=== PATIENT | male | born 1950 | race Caucasian/White ===

== ENCOUNTER 2024-05-18 09:23 | Emergency (ER) | payer OTHER, SELFPAY ==
[2024-05-18] VITALS (13 sets, daily range): BP systolic 103–145; BP diastolic 57–81; PULSE 69–106; RESP 16–18; TEMP 36.7; O2SAT 96–100
--- NOTE | 2024-05-18 09:34 | ED_ITS ---
HPI - Abdominal Pain General Chief Complaint: Abdominal Pain Stated Complaint: Stomach pain Time Seen by Provider: 05/18/24 09:33 Source: patient Mode of arrival: Ambulatory Limitations: no limitations History of Present Illness HPI narrative: Patient is a 74-year-old male no significant past medical history comes into the ED from home for evaluation of right lower quadrant abdominal pain. She has been ongoing and intermittent for the past 3 months, states it is somewhat similar to when he had hernia repair several years ago, states it was inguinal hernia repair with mesh. 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 He states he has not having any urinary symptoms no other GI symptoms at this time. States that he just wants it ?checked out. No fevers no chills, states that he has not noticed any bulging to the area. Related Data Allergies Allergy/AdvReac Type Severity Reaction Status Date / Time NSAIDS (Non-Steroidal Allergy Severe Anaphylaxis Verified 05/18/24 09:37 Anti-Inflamma shellfish derived Allergy Verified 05/18/24 10:15 Review of Systems Review of Systems Narrative: HEENT: Denies headache, eye drainage, eye irritation, head trauma, sore throat, voice change Cardiovascular: Denies any chest pain, palpitations, shortness of breath, tachycardia Respiratory: Denies any shortness of breath, cough, wheeze, stridor GI/: Denies nausea, vomiting, diarrhea, bright red blood per rectum, melanotic stools, urinary frequency, urinary retention, dysuria, hematuria, positive for right lower quadrant abdominal pain MSK: Denies any joint pain, muscle pains, swelling Skin: Denies any rashes, lesions, discoloration Neuro: Denies any headache, lightheadedness, dizziness, fainting, weakness Psych: Denies SI/HI Patient History Social History Smoking Status: Never smoker Exam Narrative Exam Narrative: General: Cooperative, comfortable, well-developed, not in acute distress HEENT: Normocephalic, atraumatic, PERRLA, normal sclera, eyelids normal, Neck: Active full range of motion, atraumatic Chest: Normal to inspection, negative crepitus, no overlying erythema ecchymosis Respiratory: Normal respiratory effort, not in acute respiratory distress, clear to auscultation bilaterally negative cough, wheeze, tachypnea, rhonchi, rales Cardiology: Regular rate rhythm negative gallop, murmur, rubs GI/: Normal to inspection, soft, nonrigid, patient without any palpable inguinal hernias, mild tenderness to palpation of the right lower quadrant MSK: Full range of active range of motion of all 4 extremities, atraumatic Skin: No rashes lesions noted Neuro: Alert awake oriented x3, moves all 4 extremities spontaneously, cranial nerves intact, able to answer all questions appropriately follows commands appropriately Psych: Cooperative, negative suicidal or homicidal ideations Initial Vital Signs Initial Vital Signs: Vital Signs Pulse Oximetry 98 05/18/24 09:30 Course Orders Ordered: ED Orders 05/18/24 09:38 Consult to PHARMACY INFORMATICS MANAGER - [employer] Stat 05/18/24 09:40 CT abdomen pelvis w con Stat 05/18/24 09:50 Complete Blood Count AUTO DIFF Stat Comprehensive Metabolic Panel Stat Discontinued Medications Acetaminophen (Acetaminophen 325 Mg Tablet) 650 mg PO NOW ONE Stop: 05/18/24 09:41 Last Admin: 05/18/24 10:12 Dose: Not Given Documented By: MARCELINO Sodium Chloride (Normal Saline 0.9%) 1,000 mls @ 1,000 mls/hr IV BOLUS ONE Stop: 05/18/24 10:39 Last Infusion: 05/18/24 11:22 Dose: Infused Documented By: Admin: 05/18/24 10:21 Dose: 1,000 mls/hr Documented By: MARCELINO Vital Signs Vital signs: Vital Signs - 8 hr 05/18/24 09:30 05/18/24 09:31 05/18/24 09:31 Temperature Pulse Rate 106 H Respiratory Rate Blood Pressure 131/81 Pulse Oximetry 98 98 Oxygen Delivery Method 05/18/24 09:33 05/18/24 09:49 05/18/24 09:49 Temperature 98.1 F Pulse Rate 106 H 86 Respiratory Rate 16 18 Blood Pressure 131/81 115/65 Pulse Oximetry 99 96 Oxygen Delivery Method Room Air Room Air 05/18/24 10:00 05/18/24 10:00 05/18/24 10:36 Temperature Pulse Rate 82 82 Respiratory Rate Blood Pressure 103/57 L Pulse Oximetry 97 97 Oxygen Delivery Method 05/18/24 10:37 05/18/24 10:37 05/18/24 11:00 Temperature Pulse Rate 78 Respiratory Rate Blood Pressure 117/61 124/62 Pulse Oximetry 100 Oxygen Delivery Method 05/18/24 11:00 Temperature Pulse Rate 77 Respiratory Rate Blood Pressure Pulse Oximetry 97 Oxygen Delivery Method MDM - Abdominal Pain Differential Diagnosis Differential diagnosis: Likely constipation, diverticulitis, small bowel obstruction and other (Hernia) Medical Records Attestation: I reviewed the patient's medical records. Lab Data Attestation: I reviewed the patient's lab results. 05/18/24 09:50 05/18/24 09:50 Labs: Lab Results 05/18/24 Range/Units 09:50 WBC 6.0 (4.5-11.0) X10^3/uL RBC 4.27 L (4.5-5.9) X10^6/uL Hgb 13.9 (13.5-17.5) g/dL Hct 39.1 L (41-53) % MCV 91.7 (80-100) fL MCH 32.4 (26-34) PG MCHC 35.4 (30-36) % RDW 13.3 (11.6-14.8) % Plt Count 214 (150-400) X10^3/uL Neut % (Auto) 69.8 (50-75) % Lymph % (Auto) 20.1 L (25-40) % [place]born % (Auto) 8.7 (3-14) % Eos % (Auto) 0.5 L (2-4) % Baso % (Auto) 0.9 (0-2) % Neut # (Auto) 4200 (4857-4838) /uL Lymph # (Auto) 1200 (4794-0990) /uL [place]born # (Auto) 500 (0-900) /uL Eos # (Auto) 0 (0-450) /uL Baso # (Auto) 100 (0-100) /uL Sodium 133 L (137-145) mmol/L Potassium 4.3 (3.4-5.1) mmol/L Chloride 102 (98-107) mmol/L Carbon Dioxide 23 (22-32) mmol/L BUN 17 (9-20) mg/dL Creatinine 0.85 (0.66-1.25) mg/dL Estimated GFR > 60 (>60) mL/min BUN/Creatinine Ratio 20.0 (6-22) Glucose 143 H (80-110) mg/dL Calcium 9.0 (8.4-10.2) mg/dL Total Bilirubin 0.9 (0.2-1.3) mg/dL AST 22 (17-59) IU/L ALT 16 (<50) IU/L Alkaline Phosphatase 64 (38-126) U/L Total Protein 7.0 (6.3-8.2) g/dL Albumin 4.3 (3.5-5.0) g/dL Globulin 2.7 (1.7-4.1) g/dL Albumin/Globulin Ratio 1.6 (1.0-2.8) Point of care testing: Urine Dip Bedside Urine Glucose Negative Bedside Urine Bilirubin - Negative Bedside Urine Ketone - Negative Urine Specific Marion 1.015 Bedside Urine Occult Blood - Negative Bedside Urine pH 6.0 Bedside Urine Protein - Negative Bedside Urine Urobilinogen - Negative Bedside Urine Nitrite - Negative Bedside Urine Leukocytes - Negative Esterase Imaging Data CT scan - abdomen/pelvis: Radiologist's Impression: PROCEDURE: CT ABDOMEN PELVIS W CON INDICATIONS: RLQ abd pain, hx of inguinal sx repair with mesh TECHNIQUE: After the administration of intravenous contrast, axial sections acquired from the lung bases to the pubic symphysis. Coronal and sagittal reformats were performed. For radiation dose reduction, the following was used: automated exposure control, adjustment of mA and/or kV according to patient size. COMPARISON: None. FINDINGS: Image quality: Diagnostic. Lower Chest: Mild pectus excavatum. No pneumothorax, no pleural effusion, no focal consolidation. Heart size within normal limits. No pericardial effusion. ABDOMEN / PELVIS: Moderately distended urinary bladder measures up to approximately 15 cm transverse by 14 cm cc by 13 cm AP, with volume approximately 1420 cc. Numerous urinary bladder wall trabeculations, pseudo diverticula/diverticula predominantly posteriorly on the right the largest measuring up to 8 cm commonly related to chronic urinary retention. Mild nonspecific urinary bladder wall thickening measuring up to 5 mm thickness. Moderately enlarged prostate gland commonly related to prostatic hypertrophy although rarely p prostate neoplasm could have a similar appearance. Left inguinal hernia containing fat only measures up to 4.5 cm. Postoperative changes status post right inguinal hernia repair. Mild degenerative changes lower thoracic, lumbar spine. Moderate amount of stool in a pattern of constipation predominately cecum and proximal ascending colon. Normal nondilated appendix. Surgical clips status post cholecystectomy. Liver: Liver is normal in size and attenuation. Biliary ducts: No biliary dilation. Pancreas: No ductal dilation. Spleen: Size is within normal limits. Adrenal Glands: No adrenal nodules. Kidneys and Ureters: No hydronephrosis. No solid mass. No complex renal cystic lesion which requires follow up. Stomach and Bowel: No abnormally dilated small bowel. Peritoneum: No abnormal intraperitoneal fluid. No free air. Abdominal Nodes: No retroperitoneal or mesenteric adenopathy by size criteria. Vessels: Aorta and inferior vena cava are normal in size. IMPRESSION: Moderately distended urinary bladder. Numerous urinary bladder wall trabeculations, pseudo diverticula/diverticula, commonly related to chronic urinary retention. Follow-up suggested Mild nonspecific urinary bladder wall thickening. Moderately enlarged prostate gland as discussed above. Left inguinal hernia containing fat only measures up to 4.5 cm. Postoperative changes status post right inguinal hernia repair. Moderate pattern of constipation. 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 He states that he has not having any other symptoms, lab work imaging unremarkable for any acute infections, incidental finding showing urinary bladder trabeculations and thickening but no signs of urinary tract infection we will have patient follow-up with urology for this. Patient is safe for discharge home with outpatient follow-up Discharge Plan Departure Patient Disposition: Home Clinical Impression: Abdominal pain, Bladder wall thickening Activity Restrictions/Additional Instructions: Please follow up with Urology in your PCP Please read the discharge instructions sheet carefully and bring all papers to all doctor follow-up visits, as it may contain information that your doctor may want to see. Disease processes change and evolve, if your symptoms worsen or if you develop any new symptoms that are concerning to you please return for evaluation. Your evaluation today does not show any evidence of any life- threatening/serious illnesses requiring admission to the hospital or surgery. Please follow-up with your doctor for re-evaluation in approximately 1 day. Seek immediate medical attention for any worrisome symptoms. Referrals: Rufino Small DO [Physician] - Jessica Morrison MD [Primary Care Provider] - Stand Alone Forms: Patient Portal/API
--- NOTE | 2024-05-18 09:40 | DI.CT.S_ITS ---
PROCEDURE: CT ABDOMEN PELVIS W CON INDICATIONS: RLQ abd pain, hx of inguinal sx repair with mesh TECHNIQUE: After the administration of intravenous contrast, axial sections acquired from the lung bases to the pubic symphysis. Coronal and sagittal reformats were performed. For radiation dose reduction, the following was used: automated exposure control, adjustment of mA and/or kV according to patient size. COMPARISON: None. FINDINGS: Image quality: Diagnostic. Lower Chest: Mild pectus excavatum. No pneumothorax, no pleural effusion, no focal consolidation. Heart size within normal limits. No pericardial effusion. ABDOMEN / PELVIS: Moderately distended urinary bladder measures up to approximately 15 cm transverse by 14 cm cc by 13 cm AP, with volume approximately 1420 cc. Numerous urinary bladder wall trabeculations, pseudo diverticula/diverticula predominantly posteriorly on the right the largest measuring up to 8 cm commonly related to chronic urinary retention. Mild nonspecific urinary bladder wall thickening measuring up to 5 mm thickness. Moderately enlarged prostate gland commonly related to prostatic hypertrophy although rarely p prostate neoplasm could have a similar appearance. Left inguinal hernia containing fat only measures up to 4.5 cm. Postoperative changes status post right inguinal hernia repair. Mild degenerative changes lower thoracic, lumbar spine. Moderate amount of stool in a pattern of constipation predominately cecum and proximal ascending colon. Normal nondilated appendix. Surgical clips status post cholecystectomy. Liver: Liver is normal in size and attenuation. Biliary ducts: No biliary dilation. Pancreas: No ductal dilation. Spleen: Size is within normal limits. Adrenal Glands: No adrenal nodules. Kidneys and Ureters: No hydronephrosis. No solid mass. No complex renal cystic lesion which requires follow up. Stomach and Bowel: No abnormally dilated small bowel. Peritoneum: No abnormal intraperitoneal fluid. No free air. Abdominal Nodes: No retroperitoneal or mesenteric adenopathy by size criteria. Vessels: Aorta and inferior vena cava are normal in size. IMPRESSION: Moderately distended urinary bladder. Numerous urinary bladder wall trabeculations, pseudo diverticula/diverticula, commonly related to chronic urinary retention. Follow-up suggested Mild nonspecific urinary bladder wall thickening. Moderately enlarged prostate gland as discussed above. Left inguinal hernia containing fat only measures up to 4.5 cm. Postoperative changes status post right inguinal hernia repair. Moderate pattern of constipation. Dictated by: Chavo Desai M.D. on 05/18/2024 at 10:52 Approved by: Chavo Desai M.D. on 05/18/2024 at 11:36
[2024-05-18 10:01] LABS: Add Manual Diff / Slide Review NO; Basophils Absolute Auto 100 /uL (0-100); Basophils Percent Auto 0.9 % (0-2); Eosinophils Absolute Auto 0 /uL (0-450); Eosinophils Percent Auto 0.5 % (2-4); Hematocrit 39.1 % (41-53); Hemoglobin 13.9 g/dL (13.5-17.5); Lymphocytes Absolute Auto 1200 /uL (1100-4500); Lymphocytes Percent Auto 20.1 % (25-40); Mean Corpuscular HGB Conc 35.4 % (30-36); Mean Corpuscular Hemoglobin 32.4 PG (26-34); Mean Corpuscular Volume 91.7 fL (80-100); Monocytes Absolute Auto 500 /uL (0-900); Monocytes Percent Auto 8.7 % (3-14); Neutrophils Absolute Auto 4200 /uL (1500-7000); Neutrophils Percent Auto 69.8 % (50-75); Platelet Count 214 X10^3/uL (150-400); Red Blood Cell Count 4.27 X10^6/uL (4.5-5.9); Red Cell Distribution Width 13.3 % (11.6-14.8)
[2024-05-18 10:12] LABS: Alanine Aminotransferase 16 IU/L (<50); Albumin 4.3 g/dL (3.5-5.0); Albumin Globulin Ratio 1.6 (1.0-2.8); Alkaline Phosphatase 64 U/L (38-126); Aspartate Aminotransferase 22 IU/L (17-59); Bilirubin Total 0.9 mg/dL (0.2-1.3); Blood Urea Nitrogen 17 mg/dL (9-20); Carbon Dioxide 23 mmol/L (22-32); Chloride 102 mmol/L (98-107); Estimated Glomerular Filt Rate > 60 mL/min (>60); Globulin 2.7 g/dL (1.7-4.1); Glucose 143 mg/dL (80-110); HEMOLYSIS < 15 (0-50); Potassium 4.3 mmol/L (3.4-5.1); Sodium 133 mmol/L (137-145)
[2024-05-18] MEDS: SODIUM CHLORIDE 0.9% 1,000 ML 1000 ML IV (10:21)
--- NOTE | 2024-05-18 12:27 | CM.SWNOTE ---
Addendum entered by RONAN Garcia 05/18/24 13:18: Mac from [facility] requested this SPORTS CARTOONIST forward her direct line for pt to contact her, due to no formal consent from pt. Pt consented for his full name to be provided to [facility]. Contact information relayed to patient: Mac, [facility] ( ). Original Note: ED SPORTS CARTOONIST Note: 74yo male presented to the ED today for abdominal pain. Patient resides in [place] with his , Lynda, whom pt is the primary caregiver due to her advanced dementia. SPORTS CARTOONIST was consulted to assist pt with caregiver support resources. SPORTS CARTOONIST reviewed chart and discussed patient with ED staff for pt status. ED SPORTS CARTOONIST entered room, introduced self and role. Per pt, he has been primary caregiver for who has advanced dementia. Pt has been working with [facility] for respite and caregiver support until August 2023. Per pt, the Caregiver agency they were utilizing ([facility]) went out of business and he has not been able to get caregivers provided by the state since. Per pt, him and his have already completed a Medicaid LTC application and it is being processed but his 's presentation has declined significantly in the last few months; his ultimate goal is to have in LTC placement. ED SPORTS CARTOONIST discussed private caregiving in the meantime as pt has not been able to attend to medical issues due to being primary caregiver. Pt appreciative of list of caregivers located on [facility]. Pt consented to a referral to the [facility]. Plan: Pt to discharge home with a Urology follow up. Pt to follow up with [facility] referral as well with hopes of obtaining some respite/caregiving support while processing LTC Medicaid application. DANILO Gutierres
[2024-05-18] MEDS: LIDOCAINE JELLY 2% 5 ML 1 APPLIC TOP (13:38)
== END 2024-05-18 14:00 | disposition home or self-care (01) ==
PROVIDERS: Emergency Provider Student in an Organized Health Care Education/Training Program; PCP Family Medicine
DX: R10.31 Right lower quadrant pain (principal); N32.89 Other specified disorders of bladder
CPT/HCPCS: 36415; 74177; 80053; 81003; 85025; 96360; 99284; Q9967

== ENCOUNTER → 2024-11-23 15:13 | Outpatient (CLI) | payer OTHER, SELFPAY ==
--- NOTE | 2024-11-23 15:14 | DI.US.S_ITS ---
PROCEDURE: US RENAL COMPLETE INDICATIONS: 74 y/o M w/ BPH, incomplete bladder emptying TECHNIQUE: Real-time scanning was performed of the kidneys and bladder, with image documentation. COMPARISON: None. FINDINGS: Kidneys: Kidneys are normal in size. Right kidney measures 9.8 cm long; left kidney measures 10 cm long. Right renal cortical thickness is 1.2 cm; left renal cortical thickness is 1.6 cm. Renal cortical echotexture is normal. No hydronephrosis or nephrolithiasis. No suspicious solid mass lesions. Bladder: Pre-void bladder volume is 1806 mL. Post-void residual is 1579 mL. Pre-void images demonstrate no intraluminal masses or stones. On pre-void images, neither ureteral jets are noted with color Doppler interrogation. (Of note, ureteral jets may not be detectable in up to 25% of cases due to insufficient differences in specific gravity between ureteral and bladder urine). Miscellaneous: No free pelvic fluid. IMPRESSION: Severe postvoid residual of 1579 mL. Dictated by: Nate Rock M.D. on 11/23/2024 at 16:18 Approved by: Nate Rock M.D. on 11/23/2024 at 16:19
== END ==
LOC: US 15:14
PROVIDERS: PCP Family Medicine; Referring Provider Urology; Visit Provider Urology
DX: N40.1 Benign prostatic hyperplasia with lower urinary tract symptoms (principal); R33.9 Retention of urine, unspecified
CPT/HCPCS: 76770